=== PATIENT | female | born 1965 | race Two or more races ===

== ENCOUNTER 2020-10-25 11:11 | Outpatient (CLI) | payer OTHER | END 2020-10-25 11:20 | disposition home or self-care (01) | LOC: RAD 11:11 | PROVIDERS: ATTEND Internal Medicine Rheumatology | DX: M43.8X4 Other specified deforming dorsopathies, thoracic region (principal); M15.0 Primary generalized (osteo)arthritis; M05.79 Rheumatoid arthritis with rheumatoid factor of multiple sites without organ or systems involvement; M54.12 Radiculopathy, cervical region; M54.16 Radiculopathy, lumbar region; M54.17 Radiculopathy, lumbosacral region; M54.6 Pain in thoracic spine ==